=== PATIENT | male | born 1970 | race Caucasian/White ===

== ENCOUNTER 2024-09-19 11:13 | Emergency (ER) | payer MEDICAID, SELFPAY ==
[2024-09-19 11:15] VITALS: BMI 29.0
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
[2024-09-19 11:18] VITALS: BP 137/69; PULSE 105; RESP 18; TEMP 37.1; O2SAT 94; BMI 29.0
--- NOTE | 2024-09-19 11:32 | PC.NURSE ---
CALLED [facility] AND REPORT MADE ABOUT PT KATHERINE TODAY. WILL SEND OFFICER TO THE E.D.
--- NOTE | 2024-09-19 11:48 | PC.NURSE ---
[facility] HERE TO TALK WITH PT
--- NOTE | 2024-09-19 11:50 | XR_ITS ---
Examination: Right knee 2 views Technique one AP lateral right knee 2 views Date and time: September 19, 2024 0514 hours INDICATIONS: Right knee pain today. FINDINGS: No fracture or dislocation Significant soft tissue swelling prepatellar Small knee effusion IMPRESSION: No fracture Consider ultrasound soft tissue prepatellar to exclude prepatellar hematoma
--- NOTE | 2024-09-19 11:50 | XR_ITS ---
Examination: Forearm, right, 2 views. Technique: Forearm, AP, lateral 2 views Date and time of exam: September 19, 2024, 12:14 PM INDICATIONS: Right forearm pain today. FINDINGS: No fracture or dislocation. No cortical bone destruction. No foreign body IMPRESSION: No fracture
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
--- NOTE | 2024-09-19 11:50 | XR_ITS ---
Examination: Tibia-Fibula, right , 2 views Technique: Tibia-fibula AP lateral 2 views Date and time of exam: September 19, 2024, 12:18 PM INDICATIONS: Onset lower leg pain today. FINDINGS: No fracture or dislocation. No cortical bone destruction No foreign body IMPRESSION: No fracture
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
[2024-09-19 11:53] VITALS: BP 162/92; PULSE 108; RESP 20; TEMP 36.8; O2SAT 95; BMI 29.0
[2024-09-19 12:49] LABS: Basophils # (Auto) 0.1 Thou/mm3 (0.0-0.2); Basophils % (Auto) 1 % (0-2.5); Eosinophils # (Auto) 0.3 Thou/mm3 (0.0-0.5); Eosinophils % (Auto) 3 % (0-10); Hematocrit 42.2 % (41.0-53.0); Hemoglobin 15.1 g/dL (13.5-16.0); Immature Granulocytes % (Auto) 0 % (0-0); Immature Granulocytes Auto 0.03 Thou/mm3 (0.00-0.00); Lymphocytes # (Auto) 1.8 Thou/mm3 (1.0-4.8); Lymphocytes % (Auto) 20 % (10-50); Mean Corpuscular HGB Conc 35.8 g/dl (31.0-37.0); Mean Corpuscular Hemoglobin 32.1 pg (25.0-35.0); Mean Corpuscular Volume 90 fL (80-100); Monocytes # (Auto) 0.6 Thou/mm3 (0.0-0.8); Monocytes % (Auto) 7 % (0-12); Neutrophils # (Auto) 6.3 Thou/mm3 (1.8-7.7); Neutrophils % (Auto) 69 % (37-80); Nucleated Red Blood Cell % 0 /100 WBC (0); Platelet Count 270 Thou/mm3 (140-440); RDW Standard Deviation 43.3 fL (35.1-43.9); White Blood Count 9.1 Thou/mm3 (3.8-10.6)
[2024-09-19 13:03] LABS: Partial Thromboplastin Time 25.3 Seconds (22.0-36.0)
[2024-09-19 13:16] LABS: Alanine Aminotransferase 22 U/L (10-49); Albumin, Serum 4.5 gm/dL (3.5-5.0); Albumin/Globulin Ratio 1.7 (1.2-2.2); Alkaline Phosphatase 124 U/L (46-116); Anion Gap 11 (7-16); Aspartate Amino Transferase 37 U/L (0-34); BUN/Creatinine Ratio 10 Ratio (12-20); Bilirubin,Total 0.9 mg/dL (0.3-1.2); Blood Urea Nitrogen 9 mg/dL (9-23); Calcium 8.9 mg/dL (8.3-10.6); Calcium (Corrected) 8.9 mg/dL (8.5-10.1); Carbon Dioxide 27.4 mMol/L (20.0-31.0); Chloride 108 mMol/L (98-107); Creatinine (Component) 0.9 mg/dL (0.6-1.3); Globulin 2.6 gm/dL (2.3-3.5); Glucose 104 mg/dL (74-106); Osmolality,Calculated 289 (275-295); Potassium 4.6 mMol/L (3.4-5.1); Sodium 146 mMol/L (136-145); Total Protein 7.1 gm/dL (5.7-8.2); eGFR > 60 See Note
[2024-09-19 14:19] VITALS: BP 169/93; PULSE 55; RESP 18; O2SAT 98
== END 2024-09-19 14:19 | disposition home or self-care (01) ==
PROVIDERS: Nurse Practitioner Family; Emergency Provider Emergency Medicine; PCP Physician Assistant
DX: S80.12XA Contusion of left lower leg, initial encounter (principal); V13.4XXA Pedal cycle driver injured in collision with car, pick-up truck or van in traffic accident, initial encounter; Y93.55 Activity, bike riding; S50.811A Abrasion of right forearm, initial encounter; S80.211A Abrasion, right knee, initial encounter; S19.9XXA Unspecified injury of neck, initial encounter; S09.90XA Unspecified injury of head, initial encounter
CPT/HCPCS: 36415; 70450; 72125; 73090; 73560; 73590; 80053; 85025; 85730; 99284